=== PATIENT | female | born 1970 | race African-American/Black ===

== ENCOUNTER 2021-05-20 17:02 | Emergency (ER) | payer MEDICARE, MEDICAID ==
[~2021-05-20] VITALS: Ht 170.2 cm; Wt 81.8 kg
[2021-05-20 17:10] VITALS: TEMP 98
[2021-05-20 19:33] VITALS: BP 145/89; PULSE 93
== END 2021-05-20 19:35 | disposition home or self-care (01) ==
LOC: COL.ER 17:02
DX: M25.571 Pain in right ankle and joints of right foot (principal)

== ENCOUNTER → 2022-02-11 | Outpatient (CLI) | payer MEDICARE, MEDICAID | LOC: COL.RAD 12:51 | DX: G93.89 Other specified disorders of brain (principal); G31.9 Degenerative disease of nervous system, unspecified; G44.52 New daily persistent headache (NDPH); Z98.890 Other specified postprocedural states ==